=== PATIENT | male | born 1950 | race Caucasian/White ===

== ENCOUNTER 2017-06-29 05:44 | Emergency (ER) | payer MEDICARE, OTHER ==
[~2017-06-29] VITALS: Ht 162.6 cm; Wt 63.6 kg
[~2017-06-29 05:44] MED LIST: IBUPROFEN200 MG PO; MAPAP500 M1 PO; MSM1000 MG PO; ROBITUSSIN COU118 M4 PO; TAMIFLU75 MG PO; TYLENOL325 MG PO
[2017-06-29] MEDS ORDERED: ACETAMINOPHEN500 MG PO (06:14)
[2017-06-29] MEDS ORDERED: FLAGYL500 MG PO (09:26)
[2017-06-29] MEDS ORDERED: CIPRO500 MG PO (09:26)
[2017-06-29] MEDS ORDERED: NORCO 5-325 TA1 EACH PO (09:29)
== END 2017-06-29 10:13 | disposition home or self-care (01) ==
LOC: ED 05:44
DX: K57.32 Diverticulitis of large intestine without perforation or abscess without bleeding (principal); Z87.891 Personal history of nicotine dependence; Z79.891 Long term (current) use of opiate analgesic
CPT/HCPCS: 74177; 80053; 81001; 83690; 85025; 96374; 96375; 99284; J0744; J1170; J2405; Q9967

== ENCOUNTER 2017-06-30 16:56 | Observation (INO) | payer MEDICARE, OTHER ==
[~2017-06-30] VITALS: Ht 162.6 cm; Wt 69.3 kg
[~2017-06-30 16:56] MED LIST changes: +ACETAMINOPHEN500 MG PO; +CIPRO500 MG PO; +FLAGYL500 MG PO; +NORCO 5-325 TA1 EACH PO
--- NOTE | 2017-06-30 20:26 | NUR ---
PATIENT ARRIVE TO THE UNIT VIA STRETCHER AROUND 1952. PATIENT AMBULATED FROM STRETCHER TO HOSPITAL BED VIA SBA. PATIENT IS STEADY ON HIS FEET. PATIENT INTAKE ASSESMENT COMPLETED. PATIENT IS AAOX3 AND ABLE TO ANSWER ALL QUESTIONS. PATIENT IS ABLE TO STATE TIME, DATE, EVENT, NAME, DATE, AND . PATIENT OREINTED TO ROOM AND FLOOR. EDUCATED ON THE USE OF THE CALL LIGHT. PATIENT VERBALIZED UNDERSTANDING. PATIENTS HAS LEFT FOR THE EVENING. PATIENT DENIES ANY PAIN OR NAUSEA AT THIS TIME. BOWEL TONES HYPERACTIVE. PATIENT DENIES ANY TENDERNESS WITH PALPATION OF ABD. NO FURTHER NEEDS NOTED AT THIS TIME. CALL LIGHT IN REACH AND BED ALARM ON FOR SAFETY.
--- NOTE | 2017-06-30 20:29 | NUR ---
RECEIVED CALL FROM DR JESSICA. UPDATED ON PATIENTS STATUS. NEW VERBAL ORDERS RECEIVED, VERIFIED USING READBACK METHOD. WILL PUT ORDERS INTO PLACE.
--- NOTE | 2017-06-30 22:02 | NUR ---
PATIENT ASSISTED TO THE RESTROOM A SBA. PATIENT IS STEADY ON HIS FEET. PATIENT WAS ABLE TO VOID. PATIENT HAD A TINY, SOLID BM. PATIENT IS BACK IN BED RESTING. PATIENT DENIES ANY PAIN OR NAUSEA. PATIENTS URINAL PLACED AT BEDISDE PER REQUEST. PATIENT DENIES ANY FURTHER NEEDS. CALL LIGHT IN REACH AND BED ALARM IS ON FOR SAFETY.
--- NOTE | 2017-07-01 00:12 | NUR ---
PATIENTS URINAL DUMPED PER REQUEST. PATIENT DENIES ANY PAIN OR NAUSEA AT THIS TIME. CALL LIGHT IN REACH.
--- NOTE | 2017-07-01 01:43 | NUR ---
PATIENTS 0100 MEDICATIONS GIVEN PER ORDER. PATIENT APPEARS TO BE IN PAIN. PATIENT STATED "I WILL BE OK, DENIES PAIN MEDICATION" PATIENT EDUCATED ON THE IMPORTANCE OF PAIN CONTROL. PATIENT AGREED TO TAKE PAIN MEDICATION. PATIENT GIVEN PRN PAIN MEDICATION. PATIENT DENIES ANY FURTHER NEEDS AT THIS TIME. CALL LIGHT IN REACH.
--- NOTE | 2017-07-01 02:18 | NUR ---
PATIENT CONTINUES TO HAVE 8-10 PAIN. PATIENT GIVEN ANOTHER DOSE OF PRN PAIN MEDICATION TO TITRATE TO A HIGHER DOSE. PATIENT DENIES ANY NAUSEA. NO FURTHER NEEDS. CALL LIGHT IN REACH.
--- NOTE | 2017-07-01 03:26 | NUR ---
PATIENTS PAIN REASSESSED. PATIENT RATES IS AT A 5/10. PATIENT DENIES THE NEED FOR PAIN MEDICATION. PATIENT DENIES ANY NAUSEA. PATIENT DENIES ANY FURTHER NEEDS. CALL LIGHT IN REACH.
--- NOTE | 2017-07-01 07:30 | NUR ---
received report from day shift pt up to shower with global director air and climate change assistance. sl for shower. pt does not report when in pain. faces pain scale will be used. bedding changed. no other needs at this time.
--- NOTE | 2017-07-01 08:26 | NUR ---
PATIENT LETHARGIC AND DROWSY. SITTING IN RECLINER WITH FEET ELEVATED. SLOW TO RESPOND. FALLS ASLEEP BETWEEN AWAKENING BY STAFF. PATIENT ABLE TO ANSWER QUESTIONS OF MONTH, CURRENT LOCATION, AND YEAR AFTER A BRIEF PAUSE. VSS. RR 16. PUPILS SMALL, BUT REACTIVE TO LIGHT. WILL KEEP CLOSE WATCH OF PATIENT. TAG ALARM IN PLACE. PATIENT HAD INCONTINENT EPISODE THIS MORNING AT SHIFT CHANGE. AIDs ASSISTED PT TO SHOWER AND CHANGED LINENS.
--- NOTE | 2017-07-01 09:40 | NUR ---
pt is able to report pain level at this time. reports no pain. oriented to place, self, birthday, date. rr wnl o2 sats are 96% pulse is 89.
--- NOTE | 2017-07-01 10:27 | NUR ---
PT IS SITTING UP IN CHAIR WITH FEET ELEVATED AND CALL LIGHT IN REACH. PT DID NOT NEED ANYTHING ELSE AT THE MOMENT
--- NOTE | 2017-07-01 10:27 | NUR ---
PT UP TO CHAIR WITH SBA. TRASFERED WELL AND TOLLERATED WELL. CALL LIGHT WITHIN REACH. LEGS ELEVATED. BRACE ON LEFT LEG. TEDEHOSE IN PLACE. NO OTHER NEEDS AT THIS TIME.
--- NOTE | 2017-07-01 11:05 | NUR ---
SBA TO THE BED. PT IS A LITTLE UNSTEADY. WHILE IN BED THE PT REPORTED NAUSEA AND SORTLY AFTER VOMMITED. GAVE 8MG ZOFRAN. WILL CONTINUE TO MONITOR. SICKNESS BAG AT BEDSIDE. CALL LGITH WITHIN REACH. PT UP WATCHING TV IN BED NOW. REPORTS NO OTHER NEEDS AT THIS TIME.
--- NOTE | 2017-07-01 13:00 | NUR ---
pt up in bed. at bedside. reports no nausea at this time. pt is a/o x3. reports no pain at this time. call light within reach. lunch ordered but not eaten. no other needs at this time.
--- NOTE | 2017-07-01 13:51 | NUR ---
PT IS RESTING IN BED SAFELY WITH CALL LIGHT IN REACH. PT DID NOT NEED ANYTHING AT THE MOMENT
--- NOTE | 2017-07-01 15:34 | NUR ---
pt reports headache. 09/14. gave 650 mg tylenol. call light within reach. no other needs at this time
--- NOTE | 2017-07-01 15:40 | NUR ---
pt used IS appropriatly X10. EDUCATE ON USE AND HOW OFTEN. CALL IGHT WITHIN REACH NO THER NEEDS AT THIS TIME.
--- NOTE | 2017-07-01 18:04 | NUR ---
PT IS RESTING IN BED WITH CALL LIGHT IN REACH. PT DID NOT NEED ANYTHING AT THE MOMENT
--- NOTE | 2017-07-01 18:41 | NUR ---
PT ON CLEAR LIQ DIET. BARELY EATING TODAY. VOMITTED X1. ZOFRAN GIVEN AT 1100. TYLENOL GIVEN AT 1540 FOR HEADACHE. DILAUDID AVALIBALE. USE WITH CAUTION. D5LR @125. PAIN HAS BEED UNDER CONTROL TRODAY. 2 IV'S IN RIGHT ARM AND HAND. SBA.
--- NOTE | 2017-07-01 19:30 | NUR ---
RECEIVED REPORT FROM RN. PATIENT RESTING IN BED COMFORTABLY. DENIES NEEDS AT THIS TIME. CALL LIGHT WITHIN REACH.
--- NOTE | 2017-07-01 20:33 | NUR ---
PATIENT REPORTS / IN ABD, PRN IV DILAUDID GIVEN PER EMAR. ASSISTED TO BATHROOM WITH SBA, TOLERATED WELL WITHOUT SOB. MILDLY UNSTEADY GAIT, REQUIRES SBA WITH AMBULATION. DENIES FURTHER NEEDS. ASSESSMENT DONE, MEDICATIONS GIVEN. CALL LIGHT WITHIN REACH.
--- NOTE | 2017-07-01 21:51 | NUR ---
PATIENT RESTING COMFORTABLY IN BED, BREATHING IS EVEN AND UNLABORED. FLACC SCORE OF 0. O2 SATURATION IS 91% ON ROOM AIR, PULSE IS 91. CALL LIGHT WITHIN REACH.
--- NOTE | 2017-07-02 00:21 | NUR ---
PATIENT REPORTS 5/10 PAIN IN ABD, PRN IV DILAUDID GIVEN PER EMAR. DENIES FURTHER NEEDS. ASSESSMENT DONE. CALL LIGHT WITHIN REACH.
--- NOTE | 2017-07-02 01:57 | NUR ---
PATIENT RESTING COMFORTABLY IN BED, BREATHING IS EVEN AND UNLABORED. DENIES NEED FOR PAIN MEDICATION AT THIS TIME. CALL LIGHT WITHIN REACH.
--- NOTE | 2017-07-02 02:24 | NUR ---
PATIENT REPORTS 3/10 PAIN IN ABD AND DENIES NEED FOR MEDICATION AT THIS TIME. O2 SATURATION IS 96% ON ROOM AIR. DENIES NEEDS. CALL LIGHT WITHIN REACH.
--- NOTE | 2017-07-02 03:48 | NUR ---
PATIENT RESTING COMFORTABLY IN BED, BREATHING IS EVEN AND UNLABORED. O2 SATURATION IS 93% ON ROOM AIR, PULSE IS 91. FLACC SCORE OF 0. CALL LIGHT WITHIN REACH.
--- NOTE | 2017-07-02 05:17 | NUR ---
PATIENT'S NIGHT WAS UNEVENTFUL. HE HAS BEEN RESTING THROUGHOUT SHIFT. URINE OUTPUT QS, PAIN WELL CONTROLLED. NO COMPLAINTS OF NAUSEA, ABD IS TENDER, MILDLY DISTENDED. BOWEL TONES ARE ACTIVE, PATIENT REPORTS PASSING FLATUS. PATIENT IS SBA, IV FLUIDS INFUSING. NO ACUTE CHANGES.
--- NOTE | 2017-07-02 05:54 | NUR ---
PATIENT RESTING COMFORTABLY IN BED, BREATHING IS EVEN AND UNLABORED. O2 SATURATION IS 98% ON ROOM AIR. ASSISTED TO BATHROOM WITH SBA. DENIES NEEDS AT THIS TIME. REPORTS 3/10 PAIN AND DENIES NEEDS FOR PAIN MEDICATION. VITALS DONE. CALL LIGHT WITHIN REACH.
--- NOTE | 2017-07-02 07:10 | NUR ---
RECIEVED REPORT FROM RUBEN VIVAS. PT IN BED. REQUESTING TYLENOL FOR 5/10 HEADACHE. NO PAIN RELATED TO ABDOMEN. PT IS A/O. REPORTS NO NAUSEA. FLUIDS INFUSING AT 125/HR. CALL [facility] WITH[facility]. NO OTHER NEEDS AT THIS TIME.
--- NOTE | 2017-07-02 08:35 | NUR ---
patient ate breakfast, he has used the restroom wif eis in room with him currently visiting.
--- NOTE | 2017-07-02 09:06 | NUR ---
ROUNDED WITH DR JESSICA. TALKED ABOUT PLAN OF CARE AND DISEASE PROCESS.
--- NOTE | 2017-07-02 10:11 | NUR ---
PT VS AND I&O'S TAKEN AND DOCUMENTED. PT'S ONLY REQUEST IS WANTING TO GO HOME. PT HAS NO OTHER NEEDS AT THIS TIME. INFORMED PT TO CALL IF HE THINKS OF ANYTHING. CALL LIGHT IS IN REACH.
--- NOTE | 2017-07-02 10:27 | NUR ---
pt up in bed reports apin 07/15 which ois tollerable. no needs at this time. call [facility] withnick quinn. pt ate 1 cup jello with no nausea.
--- NOTE | 2017-07-02 12:13 | NUR ---
PT UP TO BATHROOM WITH SBA. TOLLERATING WELL. HAS GOOD BALANCE. NO ABD PAIN. PT IS HAVING FLATUS. SM BM. [facility]. SCD'S IN PLACE. PT IS A/O.
--- NOTE | 2017-07-02 13:18 | NUR ---
pt up to ambulate. 3 laps in the mejia. pt tollerated well. up to chair for late lunch. [facility]. no other needs at this time
--- NOTE | 2017-07-02 14:09 | NUR ---
PATEINT WAS IN CHAIR, DID VS, HE THEN WANTED TO MOVE TO BED, HE SAID HE WOULD DRINK HIS APPLE JUICE. HE NEEDED NO OTHER ASSISTANCE AT THE [facility].
--- NOTE | 2017-07-02 18:07 | NUR ---
PT IN BED, IN ROOM, VS DONE, PT NEEDED NOTHING ELSE AT THE TIME
--- NOTE | 2017-07-02 18:49 | NUR ---
notified of pt b/p high at 190/84 at this time. he was started on norvasc today. md said will monitor for now as new medication was just started today.
--- NOTE | 2017-07-02 19:18 | NUR ---
NO PAIN TODAY. SBA. FLUIDS AT 100ML. TWO IV'S IN RIGHT ARM AND HAND. CLEAR LIQUID DIET. SCD'S IN PLACE. NO N/V TODAY. WBC'S INCREASED SLIGHTLY.ON FLAGYL AND CEF STILL.
--- NOTE | 2017-07-02 20:22 | NUR ---
PT IS RESTING COMFORTABLY ON BED, SITTING AT BEDSIDE, DENIES ABD PAIN OR NAUSEA. AFEBRILE. IVF PATENT. CALL LIGHT IN EASY REACH.
--- NOTE | 2017-07-02 22:30 | NUR ---
IS GOING HOME FOR THE EVENING. PT RESTING COMFORTABLY. DENIES ANY NEEDS. CALL LIGHT IN EASY REACH.
--- NOTE | 2017-07-03 01:20 | NUR ---
UP TO BATHROOM, DENIES ABD PAIN OR NAUSEA, GOOD BOWEL TONES. CALL LIGHT IN EASY REACH
--- NOTE | 2017-07-03 03:00 | NUR ---
RESTING WELL, RESP EVEN AND UNLABORED.
--- NOTE | 2017-07-03 07:52 | NUR ---
PT IS RESTING IN BED. STATES HE IS WANTING TO GET UP TO THE BATHROOM AFTER BREAKFAST. INFORMED PT TO CALL WHEN HE IS READY AND WE WILL GET HIM SET UP FOR THE DAY. PT UNDERSTANDS. CALL LIGHT IS IN REACH.
--- NOTE | 2017-07-03 08:57 | NUR ---
PT REPORTS NO PAIN AT THIS TIME. HE IS ALERT AND ORIENTED TOLERATING DIET ADVANCE WELL AT THIS TIME. NO NAUSEA. DENIED WANTING ICE WATER REFILLED. DENIES ANYOTHER NEEDS AT THIS TIME. COOPERATIVE WITH CARE PLAN. EDUCATION GIVEN ON MEDICATIONS AND SIDE EFFECTS THIS AM.
--- NOTE | 2017-07-03 09:32 | NUR ---
PT VS AND I&O'S TAKEN AND DOCUMENTED. PT IS AWARE TO CALL IF HE THINKS OF ANYTHING HE NEEDS. CALL LIGHT IS IN REACH.
--- NOTE | 2017-07-03 09:47 | NUR ---
Pt states he is feeling better, abd less distended, denies pain, having loose stools, IV sites x 2 wnl, anitibiotics given as ordered, anxious to go home. tolerates cream of wheat, no n/v
--- NOTE | 2017-07-03 14:27 | NUR ---
PT'S VS AND I&O'S TAKEN AND DOCUMENTED. PT SAYS THAT HE DOES NOT NEED ANYTHING AT THIS TIME. INFORMED PT TO CALL IF HE THINKS OF ANYTHING. CALL LIGHT IS IN REACH.
--- NOTE | 2017-07-03 16:48 | NUR ---
PT'S VS AND I&O'S TAKEN AND DOCUMENTED. PT HAS NO NEEDS AT THIS TIME. PT IS AWARE TO CALL IF HE NEEDS HELP OR THINKS OF ANYTHING HE NEEDS. CALL LIGHT IS IN REACH.
--- NOTE | 2017-07-03 17:36 | EKG ---
[facility] [address] [facility] [place] [address] Signed Normal sinus rhythm Nonspecific T wave abnormality Abnormal ECG No previous ECGs available Confirmed by KATE GATES MD ([id number]) on 07/03/2017 5:35:54 PM Electronically Signed By: KATE GATES MD 07/03/17 1736 PATIENT NAME: PARVIN VELA Electrocardiogram DATE OF : 52 PHYSICIAN: KATE GATES MD REPORT #: [id number] REPORT IS CONFIDENTIAL AND NOT TO BE RELEASED WITHOUT AUTHORIZATION
--- NOTE | 2017-07-03 19:57 | NUR ---
Coop with assessment, no c/o pain. abd soft, no n.v
--- NOTE | 2017-07-04 00:07 | NUR ---
PT ASLEEP, AWAKENS EASILY, NO C/O PAIN, NO C/O ADVERSE SIDE EFFECTS TO ABX, USES URINAL, VOIDING CLEAR YELLOW URINE, NO C/O PAIN AT THIS TIME, NO N/V
--- NOTE | 2017-07-04 01:52 | NUR ---
AWAKENS EASILY, ABX INFUSING W/O PROBLEMS. NO C/O APIN OR N/V
--- NOTE | 2017-07-04 04:13 | NUR ---
Awake, c/o h/a. Medicatged with Tylenol 650mg po, cup of coffee given at his requests. no c/o abd pain, using urinal voiding qs.
--- NOTE | 2017-07-04 05:34 | NUR ---
Pt currently awake, watching tv, no further c/o h/a, pain meds effective. pt denies c/o abd pain, abd still slightly distented, non tender, good bowel tones. 2 IV sl sites patent. Pt gets up to brp with one assist, voiding dark yellow urine. Coop with assessments, no n/v. Tolerating soft diet well
[2017-07-04] MEDS ORDERED: NORVASC5 MG PO (08:04)
--- NOTE | 2017-07-04 08:06 | NUR ---
SL X 2 DC'D, CATHETER TIP INTACT
--- NOTE | 2017-07-05 06:10 | DS ---
[facility] [address] [place], [place] [address] Signed ADMISSION DATE: 06/30/2017 DISCHARGE DATE: 07/04/2017 FINAL DIAGNOSIS: Sigmoid diverticulitis. PROCEDURE: CT scan of abdomen and pelvis. HISTORY OF PRESENT ILLNESS: Parvin is a 67-year-old gentleman, otherwise quite healthy, who had developed about a week of lower abdominal pain. He had finally come to the emergency room 2 days prior to admission. CT scan showed what looked like mild diverticulitis. He was sent home with Cipro, Flagyl, and some hydrocodone. It seemed to be getting worse and so his brought him back to the emergency room. His heart rate was elevated. He had lower abdominal pain. His white count was up to 13.2. Lactic acid was normal at 1.1. Therefore, I was asked to admit him as a general surgeon on-call. HOSPITAL COURSE: Parvin was admitted as above and we switched him over to cefepime and Flagyl. He rapidly decreased his temperatures and his white count into the normal range. We did replace his potassium and phosphorus. He has had very little access to his doctor, so we went and checked a chest x-ray, it was fine. His EKG showed normal sinus rhythm. Our Internal Medicine Service did see him and his blood pressure is running a little high, but hopefully that will come down, as his pain in this diverticulitis resolves. He continued to make progress every day. His abdomen is quite soft now. He has some mild protuberance at his baseline, but it is completely nontender. He has had multiple bowel movements and is tolerating a low residue diet. At this point, we are going to be discharging him to home. DISCHARGE PLANS AND MEDICATIONS: Parvin will be discharged home with Cipro 500 mg p.o. b.i.d. for 10 days and Flagyl 500 mg p.o. t.i.d. for 10 days with no refills. He already has some hydrocodone at home. I will see him back in my office in about 10 days. Once he clears this diverticulitis, we will need a colonoscopy here in a few weeks. We have also encouraged him to make contact with his primary care provider since Dr. Mack has moved over to [place] about 45 minutes away. He and his have expressed understanding and agreed the above plan. He will follow a low residue diet at home and otherwise activities of daily living as tolerated. Electronically Signed By: CATRACHO JESSICA MD 07/05/17 0610 PATIENT NAME: PARVIN VELA DISCHARGE SUMMARY DATE OF : 52 REPORT #: [id number] PHYSICIAN: CATRACHO JESSICA MD PCP: ESVIN MACK MD REPORT IS CONFIDENTIAL AND NOT TO BE RELEASED WITHOUT AUTHORIZATION [address] [address] Signed MD BETTY Calero/KALAL /[id number] cc: MD Esvin Calero MD Copies: CATRACHO JESSICA MD, CHRISTOPHER MD ~ Electronically Signed By: CATRACHO JESSICA MD 07/05/17 0610 PATIENT NAME: PARVIN VELA DISCHARGE SUMMARY DATE OF : 52 REPORT #: [id number] PHYSICIAN: CATRACHO JESSICA MD PCP: ESVIN MACK MD REPORT IS CONFIDENTIAL AND NOT TO BE RELEASED WITHOUT AUTHORIZATION
--- NOTE | 2017-07-14 08:29 | CONS ---
[facility] [address] [place], [place] [address] Signed DATE OF CONSULTATION: CHIEF COMPLAINT: Left lower quadrant abdominal pain. 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 He lives with his in [place], [place]. He has been very healthy his whole life. In fact, he takes no medications. He came to the emergency room 2 days ago with left lower quadrant abdominal pain. He was diagnosed with diverticulitis, allowed to go home with Cipro, Flagyl and hydrocodone. However, he got worse with increasing heart rate, pain, and temperature and so his brought him back to the emergency room for evaluation. He went ahead and received IV Cipro and Flagyl, and we admitted him last night for ongoing treatment. Interestingly, he says he is not in pain, yet he is moaning and we offer him pain medication, he declines. This morning, he was sitting on the edge of his bed with stool in the bed and on his clothing and he seemed a little confused. He was not able to answer simple questions like how many children do you have. He is obviously significantly ill with his diverticular disease. PAST MEDICAL HISTORY: None. PAST SURGICAL HISTORY: Tonsillectomy. SOCIAL HISTORY: He quit smoking. He does not drink. He is to his , [place]ma at [phone]. They live in [place], [place] in their house. He continues to drive. He is retired from construction. He prefers the [facility] here in [place], [place]. Dr. Esvin Mack is his primary care provider. FAMILY HISTORY: He was unable to offer me any insight into his mom, dad or his brothers or sisters. REVIEW OF SYSTEMS: I reviewed 10 systems with Parvin and there was nothing new to add. ALLERGIES: None. MEDICATIONS: None. PHYSICAL EXAMINATION: Electronically Signed By: CATRACHO JESSICA MD 07/14/17 0829 PATIENT NAME: PARVIN VELA CONSULTATION DATE OF : 52 REPORT #: [id number] PHYSICIAN: CATRACHO JESSICA MD PCP: ESVIN MACK MD REPORT IS CONFIDENTIAL AND NOT TO BE RELEASED WITHOUT AUTHORIZATION [facility] [address] [place], [place] [address] Signed VITAL SIGNS: His blood pressure is 163/67, heart rate 111, his respiratory rate is 19, his T-max was 102.6, his T-current is 99.8. He is 99% on room air. He is 5 feet 4 inches and 69 kg. GENERAL: Parvin is a 67-year-old gentleman, sitting upright on the edge of his hospital bed. There is stool in the bed and on his clothing. He seems to be moaning in pain, but yet he denies pain medication and says the abdominal palpation causes no pain. LUNGS: Clear to auscultation. HEART: Regular rate and rhythm. ABDOMEN: Mild distention. It is moderately firm, but interestingly he does not seem to have pain or peritonitis. LABORATORY DATA: His white blood cell count is 13.2, neutrophils 81. BUN 12, creatinine 1.04, phosphorus 1.7. Lactic acid is 1.1. His albumin is 4.3. Blood cultures are pending. RADIOGRAPHIC STUDIES: CT scan and pelvis is reviewed directly and the report. He clearly has a thickened inflamed sigmoid colon without any abscess or intraabdominal air. ASSESSMENT AND PLAN: Parvin is a 67-year-old gentleman, who presents with significant sigmoid diverticulitis. I explained to Parvin it is more than acceptable to have some pain medication maybe that would help bring down his heart rate. In addition, we are going to change the Cipro over to cefepime and Flagyl. We will keep him on as IV fluids and hopefully this will settle down in a few days. He has expressed understanding and agrees to above plan. Catracho Jessica MD [facility] /[id number] cc: MD Catracho Knott MD Copies: ESVIN MACK MD Electronically Signed By: CATRACHO JESSICA MD 07/14/17 0829 PATIENT NAME: PARVIN VELA CONSULTATION DATE OF : 52 REPORT #: [id number] PHYSICIAN: CATRACHO JESSICA MD PCP: ESVIN MACK MD REPORT IS CONFIDENTIAL AND NOT TO BE RELEASED WITHOUT AUTHORIZATION [address] [address] Signed CATRACHO JESSICA MD ~ Electronically Signed By: CATRACHO JESSICA MD 07/14/17 0829 PATIENT NAME: PARVIN VELA CONSULTATION DATE OF : 52 REPORT #: [id number] PHYSICIAN: CATRACHO JESSICA MD PCP: ESVIN MACK MD REPORT IS CONFIDENTIAL AND NOT TO BE RELEASED WITHOUT AUTHORIZATION
== END 2017-07-04 08:42 | disposition home or self-care (01) ==
LOC: ED 16:56 → MS 18:58 → ED 18:58 → MS 18:58
PROVIDERS: ADMIT Colon & Rectal Surgery
DX: K57.32 Diverticulitis of large intestine without perforation or abscess without bleeding (principal); I10 Essential (primary) hypertension; E87.6 Hypokalemia; E83.39 Other disorders of phosphorus metabolism; J98.11 Atelectasis; Z79.2 Long term (current) use of antibiotics; Z87.891 Personal history of nicotine dependence; Z79.891 Long term (current) use of opiate analgesic; Z79.899 Other long term (current) drug therapy
CPT/HCPCS: 36415; 71046; 80048; 80053; 83605; 83735; 84100; 84134; 85025; 87040; 93005; 93010; 94760; 96366; 96367; 96368; 96372; 96374; 96375; 96376; 99285; G0378; J0692; J0744; J1170; J1644; J2405; J7030; J7040; J7042; J7120

== ENCOUNTER 2017-11-29 10:05 | Emergency (ER) | payer MEDICARE, OTHER ==
[~2017-11-29] VITALS: Ht 162.6 cm; Wt 69.3 kg
[~2017-11-29 10:05] MED LIST changes: +NORVASC5 MG PO
[2017-11-29] MEDS ORDERED: ONDANSETRON ODT8 MG PO (12:57)
[2017-11-29] MEDS ORDERED: NORCO 5-325 TA1 EACH PO (12:57)
== END 2017-11-29 13:54 | disposition home or self-care (01) ==
LOC: ED 10:05
DX: N13.2 Hydronephrosis with renal and ureteral calculous obstruction (principal)
CPT/HCPCS: 74177; 80053; 81001; 83690; 85025; 96361; 96374; 96375; 99284; J1170; J1885; J2405; J7030; Q9967